=== PATIENT | female | born 1945 | race Caucasian/White ===

== ENCOUNTER → 2017-05-16 | Outpatient (CLI) | payer MEDICARE ==
[2014-04-04 12:19] VITALS: BP 103/49
[~2017-05-16] MED LIST: APRESOLINE 25MG25 MG PO; ASPIRIN 32325 MG/TAB PO; CLARITIN10 MG PO; COZAAR100 MG PO; FLONASE0.05 MG/AC IH; HYDROCHLOROTHIA25 MG PO; IMDUR ER30 MG PO; LIPITOR 40MG TA40 MG PO; MULTIPLE VITAMI1 CAP PO; NITROQUICK0.4 MG SL; NORVASC 5MG5 MG/TAB PO; PLAVIX 75MG TAB75 MG PO; PREMARIN .3MG0.3 MG PO; PRILOSEC 20MG20 MG PO; SINGULAIR10 MG PO; VENTOLIN0.09 MG IH; VITAMIN D50000 I2 PO; [UNRECOGNIZED DRUG - CODE] PO; [UNRECOGNIZED DRUG - OTHER] PO
== END ==
LOC: RAD 13:17
DX: J90 Pleural effusion, not elsewhere classified (principal); J98.11 Atelectasis

== ENCOUNTER → 2017-06-13 | Outpatient (CLI) | payer MEDICARE ==
[2014-04-04 12:19] VITALS: BP 103/49
== END ==
LOC: RAD 10:38
DX: R05 Cough (principal)

== ENCOUNTER → 2017-07-18 | Outpatient (CLI) | payer MEDICARE ==
[2014-04-04 12:19] VITALS: BP 103/49
== END ==
LOC: RAD 11:32
DX: M79.661 Pain in right lower leg (principal)

== ENCOUNTER → 2017-09-02 | Outpatient (CLI) | payer MEDICARE ==
[2014-04-04 12:19] VITALS: BP 103/49
[2017-09-02 17:11] LABS: ALBUMIN 4.3 g/dL (3.5-5.0); CALCIUM 8.9 mg/dL (8.4-10.2); POTASSIUM 3.2 mmol/L (3.6-5.0); TOTAL BILIRUBIN 0.2 mg/dL (0.2-1.3); TOTAL PROTEIN 7.6 g/dL (6.3-8.2)
[2017-09-02 17:22] LABS: EOS # 0.1 (0.04-0.40); HEMATOCRIT 34.9 % (37.0-47.0); HEMOGLOBIN 10.4 g/dL (12.5-16.0); MEAN CELL VOLUME 83 fl (78-100); MEAN CORPUSCULAR HEMOGLOBIN 25 pg (27-31); MEAN CORPUSCULAR HGB CONC 30 g/dL (33-37); MEAN PLATELET VOLUME 9.3 fl (7.4-10.4); MONO # 0.6 (0.20-0.80); NEU # 2.2 (1.40-6.50); PLATELET COUNT 483 K/mm3 (130-400); RED BLOOD COUNT 4.21 M/mm3 (4.10-5.30); RED CELL DISTRIBUTION WIDTH 15.4 % (11.5-14.5)
[2017-09-02 18:28] LABS: ERYTHROCYTE SEDIMENTATION RATE 17 mm/hr (0-30)
== END ==
LOC: LAB 16:24
PROVIDERS: Internal Medicine
DX: I10 Essential (primary) hypertension (principal); M85.89 Other specified disorders of bone density and structure, multiple sites; E78.2 Mixed hyperlipidemia; Z12.11 Encounter for screening for malignant neoplasm of colon; R20.2 Paresthesia of skin

== ENCOUNTER → 2017-11-15 | Outpatient (CLI) | payer MEDICARE ==
[2014-04-04 12:19] VITALS: BP 103/49
[2017-11-15 12:16] LABS: ALBUMIN 3.9 g/dL (3.5-5.0); BUN/CREATININE RATIO 22.4 (6.0-26.0); CALCIUM 8.9 mg/dL (8.4-10.2); POTASSIUM 3.6 mmol/L (3.6-5.0); TOTAL BILIRUBIN 0.3 mg/dL (0.2-1.3)
== END ==
LOC: LAB 11:36
PROVIDERS: Internal Medicine
DX: E78.5 Hyperlipidemia, unspecified (principal); I10 Essential (primary) hypertension

== ENCOUNTER → 2018-05-12 | Outpatient (CLI) | payer MEDICARE ==
[2014-04-04 12:19] VITALS: BP 103/49
[2018-05-12 12:25] LABS: ALBUMIN 3.9 g/dL (3.5-5.0); POTASSIUM 3.5 mmol/L (3.6-5.0); TOTAL BILIRUBIN 0.6 mg/dL (0.2-1.3); TOTAL PROTEIN 6.7 g/dL (6.3-8.2)
== END ==
LOC: LAB 10:54
PROVIDERS: Internal Medicine
DX: I10 Essential (primary) hypertension (principal); E78.5 Hyperlipidemia, unspecified; M85.80 Other specified disorders of bone density and structure, unspecified site

== ENCOUNTER → 2018-12-12 | Outpatient (CLI) | payer MEDICARE ==
[2014-04-04 12:19] VITALS: BP 103/49
[2018-12-12 16:43] LABS: EOS # 0.2 (0.04-0.40); EOS % 2.7 % (1.0-5.0); HEMATOCRIT 30.5 % (37.0-47.0); HEMOGLOBIN 8.8 g/dL (12.5-16.0); LYMPH# 2.8 (1.50-4.00); MEAN CELL VOLUME 78 fl (78-100); MONO # 0.8 (0.20-0.80); NEU # 3.4 (1.40-6.50); PLATELET COUNT 396 K/mm3 (130-400); RED BLOOD COUNT 3.91 M/mm3 (4.10-5.30); RED CELL DISTRIBUTION WIDTH 15.5 % (11.5-14.5); WHITE BLOOD COUNT 7.3 K/mm3 (4.8-10.8)
[2018-12-12 17:25] LABS: ALBUMIN 3.9 g/dL (3.4-4.8); CALCIUM 9.2 mg/dL (8.3-10.5); POTASSIUM 3.2 mmol/L (3.5-5.1); TOTAL BILIRUBIN 0.3 mg/dL (0.2-1.2); TOTAL PROTEIN 6.5 g/dL (6.2-8.1)
[2018-12-12 17:26] LABS: MEAN CORPUSCULAR HEMOGLOBIN 23 pg (27-31); MEAN CORPUSCULAR HGB CONC 29 g/dL (33-37)
== END ==
LOC: LAB 16:32
PROVIDERS: Internal Medicine
DX: I10 Essential (primary) hypertension (principal); M85.80 Other specified disorders of bone density and structure, unspecified site; E78.5 Hyperlipidemia, unspecified; R20.2 Paresthesia of skin

== ENCOUNTER → 2019-02-26 | Outpatient (CLI) | payer MEDICARE ==
[2014-04-04 12:19] VITALS: BP 103/49
[2019-02-26 10:46] LABS: EOS # 0.2 (0.04-0.40); EOS % 2.4 % (1.0-5.0); HEMATOCRIT 29.5 % (37.0-47.0); HEMOGLOBIN 8.4 g/dL (12.5-16.0); LYMPH# 2.7 (1.50-4.00); MEAN CELL VOLUME 77 fl (78-100); MEAN PLATELET VOLUME 9.8 fl (7.4-10.4); MONO # 0.7 (0.20-0.80); PLATELET COUNT 364 K/mm3 (130-400); RED BLOOD COUNT 3.84 M/mm3 (4.10-5.30); RED CELL DISTRIBUTION WIDTH 16.4 % (11.5-14.5); WHITE BLOOD COUNT 6.7 K/mm3 (4.8-10.8)
[2019-02-26 10:48] LABS: MEAN CORPUSCULAR HEMOGLOBIN 22 pg (27-31); MEAN CORPUSCULAR HGB CONC 29 g/dL (33-37)
== END ==
LOC: LAB 10:26
PROVIDERS: Internal Medicine Pulmonary Disease
DX: J45.40 Moderate persistent asthma, uncomplicated (principal)

== ENCOUNTER → 2019-04-13 | Outpatient (CLI) | payer MEDICARE ==
[2014-04-04 12:19] VITALS: BP 103/49
[2019-04-13 09:06] LABS: HEMATOCRIT 28.9 % (37.0-47.0); HEMOGLOBIN 8.1 g/dL (12.5-16.0); MEAN CELL VOLUME 75 fl (78-100); MEAN PLATELET VOLUME 10.6 fl (7.4-10.4); PLATELET COUNT 335 K/mm3 (130-400); RED BLOOD COUNT 3.87 M/mm3 (4.10-5.30); RED CELL DISTRIBUTION WIDTH 16.5 % (11.5-14.5); WHITE BLOOD COUNT 6.2 K/mm3 (4.8-10.8)
[2019-04-13 09:37] LABS: LYMPHOCYTE 40 % (20-51); MEAN CORPUSCULAR HEMOGLOBIN 21 pg (27-31); MEAN CORPUSCULAR HGB CONC 28 g/dL (33-37); MICROCYTOSIS 1+; MONOCYTE 8 % (3-10); NEUTROPHILS 49 % (42-75); OVALOCYTES 1+; TARGET CELLS 1+
== END ==
LOC: LAB 08:04
PROVIDERS: Internal Medicine
DX: D50.0 Iron deficiency anemia secondary to blood loss (chronic) (principal)

== ENCOUNTER → 2019-04-24 | Outpatient (CLI) | payer MEDICARE ==
[2014-04-04 12:19] VITALS: BP 103/49
[2019-04-24 13:22] LABS: EOS # 0.1 (0.04-0.40); HEMATOCRIT 30.1 % (37.0-47.0); HEMOGLOBIN 8.5 g/dL (12.5-16.0); LYMPH# 2.6 (1.50-4.00); MEAN CELL VOLUME 73 fl (78-100); MONO # 0.6 (0.20-0.80); NEU # 3.9 (1.40-6.50); PLATELET COUNT 428 K/mm3 (130-400); RED BLOOD COUNT 4.12 M/mm3 (4.10-5.30); RED CELL DISTRIBUTION WIDTH 16.1 % (11.5-14.5); WHITE BLOOD COUNT 7.2 K/mm3 (4.8-10.8)
[2019-04-24 15:10] LABS: MEAN CORPUSCULAR HEMOGLOBIN 21 pg (27-31); MEAN CORPUSCULAR HGB CONC 28 g/dL (33-37)
== END ==
LOC: LAB 13:03
PROVIDERS: Physician Assistant
DX: D64.9 Anemia, unspecified (principal)

== ENCOUNTER 2019-05-23 11:50 | Outpatient (RCR) | payer MEDICARE ==
[2019-05-14 11:31] VITALS: BP 119/68
[2019-05-15 11:45] VITALS: BP 121/64
[2019-05-15 12:41] VITALS: BP 129/59
[2019-05-16 11:00] VITALS: BP 136/61
[2019-05-16 12:15] VITALS: BP 114/59
[2019-05-22 12:25] VITALS: BP 131/67
[~2019-05-23] VITALS: Ht 157.5 cm; Wt 84.5 kg
[2019-05-23 12:02] VITALS: BP 147/75
[2019-05-23 13:05] VITALS: BP 137/77
== END 2019-05-23 13:18 | disposition home or self-care (01) ==
LOC: AMSURD 11:50
DX: N18.3 Chronic kidney disease, stage 3 (moderate) (principal); D50.9 Iron deficiency anemia, unspecified; D63.1 Anemia in chronic kidney disease
CPT/HCPCS: J2916

== ENCOUNTER → 2019-05-31 | Outpatient (CLI) | payer MEDICARE ==
[2019-05-23 13:05] VITALS: BP 137/77
[2019-05-31 13:49] LABS: HEMATOCRIT 34.4 % (37.0-47.0); MEAN CELL VOLUME 82 fl (78-100); MEAN PLATELET VOLUME 8.6 fl (7.4-10.4); PLATELET COUNT 497 K/mm3 (130-400); RED BLOOD COUNT 4.22 M/mm3 (4.10-5.30); WHITE BLOOD COUNT 4.4 K/mm3 (4.8-10.8)
[2019-05-31 14:00] LABS: MEAN CORPUSCULAR HEMOGLOBIN 24 pg (27-31); MEAN CORPUSCULAR HGB CONC 29 g/dL (33-37); RED CELL DISTRIBUTION WIDTH 26.3 % (11.5-14.5)
[2019-05-31 14:02] LABS: PROTHROMBIN TIME 10.5 SECONDS (9.0-12.0)
[2019-05-31 14:25] LABS: HYPOCHROMIA 1+; LYMPHOCYTE 53 % (20-51); MONOCYTE 3 % (3-10); NEUTROPHILS 44 % (42-75); POLYCHROMASIA 1+
== END ==
LOC: RAD 13:17
PROVIDERS: Physician Assistant
DX: I82.622 Acute embolism and thrombosis of deep veins of left upper extremity (principal); D50.9 Iron deficiency anemia, unspecified

== ENCOUNTER → 2019-06-14 | Outpatient (CLI) | payer MEDICARE ==
[2019-05-23 13:05] VITALS: BP 137/77
== END ==
LOC: LAB 11:59
DX: M85.89 Other specified disorders of bone density and structure, multiple sites (principal); R20.2 Paresthesia of skin

== ENCOUNTER → 2019-10-23 | Outpatient (CLI) | payer MEDICARE ==
[2019-10-23 08:56] LABS: EOS # 0.1 (0.04-0.40); EOS % 1.8 % (1.0-5.0); HEMATOCRIT 40.1 % (37.0-47.0); HEMOGLOBIN 13.3 g/dL (12.5-16.0); MEAN CELL VOLUME 94 fl (78-100); MEAN CORPUSCULAR HEMOGLOBIN 31 pg (27-31); MEAN CORPUSCULAR HGB CONC 33 g/dL (33-37); MEAN PLATELET VOLUME 10.1 fl (7.4-10.4); MONO # 0.8 (0.20-0.80); NEU # 2.6 (1.40-6.50); PLATELET COUNT 308 K/mm3 (130-400); RED BLOOD COUNT 4.26 M/mm3 (4.10-5.30); RED CELL DISTRIBUTION WIDTH 13.9 % (11.5-14.5); WHITE BLOOD COUNT 6.5 K/mm3 (4.8-10.8)
[2019-10-23 09:03] LABS: ALBUMIN 4.1 g/dL (3.4-4.8); POTASSIUM 3.1 mmol/L (3.5-5.1)
[2019-10-23 09:04] LABS: CALCIUM 9.2 mg/dL (8.3-10.5)
[2019-10-23 09:06] LABS: TOTAL PROTEIN 6.9 g/dL (6.2-8.1)
[2019-10-23 09:08] LABS: TOTAL BILIRUBIN 0.5 mg/dL (0.2-1.2)
== END ==
LOC: LAB 08:27
PROVIDERS: Internal Medicine
DX: I10 Essential (primary) hypertension (principal); E78.5 Hyperlipidemia, unspecified; D50.9 Iron deficiency anemia, unspecified; R73.02 Impaired glucose tolerance (oral)

== ENCOUNTER → 2019-12-27 | Outpatient (CLI) | payer MEDICARE ==
[2019-12-27 12:37] LABS: EOS # 0.1 (0.04-0.40); EOS % 1.2 % (1.0-5.0); HEMATOCRIT 40.2 % (37.0-47.0); HEMOGLOBIN 13.5 g/dL (12.5-16.0); LYMPH# 2.6 (1.50-4.00); MEAN CELL VOLUME 96 fl (78-100); MEAN CORPUSCULAR HEMOGLOBIN 32 pg (27-31); MEAN CORPUSCULAR HGB CONC 34 g/dL (33-37); MEAN PLATELET VOLUME 10.2 fl (7.4-10.4); MONO # 0.7 (0.20-0.80); NEU # 3.3 (1.40-6.50); PLATELET COUNT 305 K/mm3 (130-400); RED BLOOD COUNT 4.21 M/mm3 (4.10-5.30); RED CELL DISTRIBUTION WIDTH 12.9 % (11.5-14.5); WHITE BLOOD COUNT 6.8 K/mm3 (4.8-10.8)
[2019-12-27 12:38] LABS: ALBUMIN 4.3 g/dL (3.4-4.8); POTASSIUM 4.3 mmol/L (3.5-5.1)
[2019-12-27 12:39] LABS: CALCIUM 9.2 mg/dL (8.3-10.5)
[2019-12-27 12:41] LABS: TOTAL PROTEIN 6.9 g/dL (6.2-8.1)
[2019-12-27 12:42] LABS: TOTAL BILIRUBIN 0.4 mg/dL (0.2-1.2)
[2019-12-27 12:47] LABS: MAGNESIUM 1.79 mg/dL (1.60-2.60)
[2019-12-27 12:49] LABS: PROTHROMBIN TIME 9.6 SECONDS (9.0-12.0)
[2019-12-27 13:18] LABS: URINE APPEARANCE CLEAR; URINE BILIRUBIN NEGATIVE (NEGATIVE); URINE BLOOD NEGATIVE (NEGATIVE); URINE COLOR YELLOW; URINE GLUCOSE NEGATIVE (NEGATIVE); URINE KETONE NEGATIVE (NEGATIVE); URINE LEUKOCYTE ESTERASE NEGATIVE (NEGATIVE); URINE NITRATE NEGATIVE (NEGATIVE); URINE PROTEIN(semi-quant) NEGATIVE (NEGATIVE); URINE UROBILINOGEN NORMAL (NORMAL)
== END ==
LOC: AMSURD 11:40
PROVIDERS: Internal Medicine
DX: Z01.818 Encounter for other preprocedural examination (principal); M51.36 Other intervertebral disc degeneration, lumbar region; M47.816 Spondylosis without myelopathy or radiculopathy, lumbar region; H25.013 Cortical age-related cataract, bilateral

== ENCOUNTER → 2020-02-12 | Outpatient (CLI) | payer MEDICARE | LOC: RAD 08:55 | DX: M48.061 Spinal stenosis, lumbar region without neurogenic claudication (principal); M51.16 Intervertebral disc disorders with radiculopathy, lumbar region; M47.26 Other spondylosis with radiculopathy, lumbar region ==

== ENCOUNTER 2021-02-26 09:25 | Emergency (ER) | payer MEDICARE ==
[~2021-02-26] VITALS: Ht 154.9 cm; Wt 81.8 kg
[2021-02-26 10:08] LABS: URINE APPEARANCE CLOUDY; URINE BILIRUBIN NEGATIVE (NEGATIVE); URINE BLOOD NEGATIVE (NEGATIVE); URINE COLOR YELLOW; URINE GLUCOSE NEGATIVE (NEGATIVE); URINE KETONE NEGATIVE (NEGATIVE); URINE LEUKOCYTE ESTERASE 2+ (NEGATIVE); URINE MUCUS PRESENT (NOT PRESENT); URINE NITRATE NEGATIVE (NEGATIVE); URINE PROTEIN(semi-quant) 1+ mg/dL (NEGATIVE); URINE UROBILINOGEN NORMAL (NORMAL); URINE WBC >50 /hpf (0-3)
[2021-02-26 10:32] LABS: BASO # 0.03 (0.02-0.10); EOS # 0.05 (0.04-0.40); EOS % 0.6 % (1.0-5.0); HEMATOCRIT 35.6 % (37.0-47.0); HEMOGLOBIN 11.9 g/dL (12.5-16.0); LYMPH# 2.41 (1.50-4.00); MEAN CELL VOLUME 96 fl (78-100); MEAN CORPUSCULAR HEMOGLOBIN 32 pg (27-31); MEAN CORPUSCULAR HGB CONC 33 g/dL (33-37); MEAN PLATELET VOLUME 9.9 fl (7.4-10.4); MONO # 1.33 (0.20-0.80); NEU # 4.48 (1.40-6.50); PLATELET COUNT 257 K/mm3 (130-400); RED BLOOD COUNT 3.72 M/mm3 (4.10-5.30); RED CELL DISTRIBUTION WIDTH 12.9 % (11.5-14.5); WHITE BLOOD COUNT 8.4 K/mm3 (4.8-10.8)
[2021-02-26 10:46] LABS: ALBUMIN 3.9 g/dL (3.4-4.8); POTASSIUM 3.5 mmol/L (3.5-5.1)
[2021-02-26 10:48] LABS: CALCIUM 9.3 mg/dL (8.3-10.5); SODIUM 141 mmol/L (136-145)
[2021-02-26 10:49] LABS: D-DIMER 0.43 mg/L FEU (0.15-0.50); GLUCOSE 176 mg/dL (65-105); TOTAL PROTEIN 6.9 g/dL (6.2-8.1)
[2021-02-26 10:50] LABS: CARBON DIOXIDE 25 mmol/L (23-31)
[2021-02-26 10:51] LABS: TOTAL BILIRUBIN 0.7 mg/dL (0.2-1.2)
[2021-02-26] MEDS ORDERED: RT ALBUTEROL CC18 GM IH ×2 (10:51→10:52)
[2021-02-26 10:54] LABS: AST-SGOT 24 U/L (5-34)
[2021-02-26] MEDS ORDERED: CELEBREX 200MG200 MG PO (10:54)
[2021-02-26] MEDS ORDERED: LIPITOR 80MG80 MG PO (10:54)
[2021-02-26] MEDS ORDERED: CALCIUM + D3 E1 EACH PO (10:54)
[2021-02-26 10:55] LABS: ALT/SGPT 29 U/L (0-55)
[2021-02-26] MEDS ORDERED: CYCLOBENZAPRINE10 M1 PO (10:56)
[2021-02-26] MEDS ORDERED: DUREZOL5 ML OP (10:57)
[2021-02-26] MEDS ORDERED: VITAMIN D21250 MCG PO (10:59)
[2021-02-26] MEDS ORDERED: DIFLUCAN200 M1 PO (10:59)
[2021-02-26] MEDS ORDERED: FLUTICASONE P15.8 ML NS (11:00)
[2021-02-26] MEDS ORDERED: HYDRALAZINE100 MG PO (11:02)
[2021-02-26] MEDS ORDERED: HCTZ 25MG25 MG PO (11:02)
[2021-02-26] MEDS ORDERED: IPRATROPIUM BROM3 M1 IH (11:02)
[2021-02-26] MEDS ORDERED: EFFER-K20 MEQ PO (11:03)
[2021-02-26 11:05] LABS: TROPONIN-I < 0.03 ng/mL (<0.030)
[2021-02-26] MEDS ORDERED: CLARITIN 1010 MG/TAB PO (11:05)
[2021-02-26] MEDS ORDERED: COZAAR100 MG PO (11:05)
[2021-02-26] MEDS ORDERED: METOPROLOL SUCC25 M1 PO (11:06)
[2021-02-26] MEDS ORDERED: SINGULAIR PO (11:06)
[2021-02-26] MEDS ORDERED: ONE DAILY WOME1 EACH PO (11:07)
[2021-02-26] MEDS ORDERED: NITROSTAT0.4 M1 SL (11:07)
[2021-02-26] MEDS ORDERED: TOPROL XL 50MG50 MG PO (11:07)
[2021-02-26] MEDS ORDERED: NYSTATIN OINTME15 GM TOP (11:09)
[2021-02-26] MEDS ORDERED: NYSTOP POWDER15 GM TP (11:09)
[2021-02-26] MEDS ORDERED: PRILOSEC OTC20 MG PO (11:10)
[2021-02-26] MEDS ORDERED: TORSEMIDE10 M1 PO (11:10)
[2021-02-26] MEDS ORDERED: ALDACTONE25 M1 PO (11:10)
[2021-02-26] MEDS ORDERED: TRIAMCINOLONE A15 G2 TP (11:11)
[2021-02-26] MEDS ORDERED: DOXYCYCLINE HY100 M5 PO (13:05)
[2021-02-26] MEDS ORDERED: DECADRON6 M1 PO (13:05)
[2021-02-26 13:20] VITALS: BP 99/59
== END 2021-02-26 13:20 | disposition home or self-care (01) ==
LOC: ED 09:25
PROVIDERS: Nurse Practitioner
DX: U07.1 COVID-19 (principal); N39.0 Urinary tract infection, site not specified; J45.909 Unspecified asthma, uncomplicated; I25.10 Atherosclerotic heart disease of native coronary artery without angina pectoris; E78.2 Mixed hyperlipidemia; I12.9 Hypertensive chronic kidney disease with stage 1 through stage 4 chronic kidney disease, or unspecified chronic kidney disease; N18.30 Chronic kidney disease, stage 3 unspecified; E66.9 Obesity, unspecified; Z88.0 Allergy status to penicillin; Z79.82 Long term (current) use of aspirin; Z79.899 Other long term (current) drug therapy; Z79.02 Long term (current) use of antithrombotics/antiplatelets; Z68.34 Body mass index [BMI] 34.0-34.9, adult
CPT/HCPCS: J0696; J1100; J7030

== ENCOUNTER → 2021-11-03 | Outpatient (CLI) | payer MEDICARE ==
[~2021-11-03] MED LIST changes: +ALDACTONE25 M1 PO; +CALCIUM + D3 E1 EACH PO; +CELEBREX 200MG200 MG PO; +CLARITIN 1010 MG/TAB PO; +CYCLOBENZAPRINE10 M1 PO; +DECADRON6 M1 PO; +DIFLUCAN200 M1 PO; +DOXYCYCLINE HY100 M5 PO; +DUREZOL5 ML OP; +EFFER-K20 MEQ PO; +FLUTICASONE P15.8 ML NS; +HCTZ 25MG25 MG PO; +HYDRALAZINE100 MG PO; +IPRATROPIUM BROM3 M1 IH; +LIPITOR 80MG80 MG PO; +METOPROLOL SUCC25 M1 PO; +NITROSTAT0.4 M1 SL; +NYSTATIN OINTME15 GM TOP; +NYSTOP POWDER15 GM TP; +ONE DAILY WOME1 EACH PO; +PRILOSEC OTC20 MG PO; +RT ALBUTEROL CC18 GM IH; +SINGULAIR PO; +TOPROL XL 50MG50 MG PO; +TORSEMIDE10 M1 PO; +TRIAMCINOLONE A15 G2 TP; +VITAMIN D21250 MCG PO
[2021-11-03 16:50] LABS: URINE APPEARANCE CLEAR; URINE BILIRUBIN NEGATIVE (NEGATIVE); URINE BLOOD NEGATIVE (NEGATIVE); URINE COLOR YELLOW; URINE KETONE NEGATIVE (NEGATIVE); URINE LEUKOCYTE ESTERASE 1+ (NEGATIVE); URINE MUCUS PRESENT (NOT PRESENT); URINE NITRATE POSITIVE (NEGATIVE); URINE PROTEIN(semi-quant) TRACE (NEGATIVE); URINE UROBILINOGEN NORMAL (NORMAL); URINE WBC 31-50 /hpf (0-3)
== END ==
LOC: LAB 15:43
PROVIDERS: Nurse Practitioner Family
DX: B37.3 Candidiasis of vulva and vagina (principal); B37.2 Candidiasis of skin and nail; N39.0 Urinary tract infection, site not specified

== ENCOUNTER → 2021-11-09 | Outpatient (CLI) | payer MEDICARE ==
[2021-11-09 12:33] LABS: BASO # 0.04 K/mm3 (0.02-0.10); EOS # 0.12 K/mm3 (0.04-0.40); EOS % 1.9 % (1.0-5.0); HEMATOCRIT 37.1 % (37.0-47.0); HEMOGLOBIN 12.4 g/dL (12.5-16.0); LYMPH# 2.56 K/mm3 (1.50-4.00); MEAN CELL VOLUME 92 fl (78-100); MEAN CORPUSCULAR HEMOGLOBIN 31 pg (27-31); MEAN CORPUSCULAR HGB CONC 33 g/dL (33-37); MEAN PLATELET VOLUME 9.8 fl (7.4-10.4); MONO # 0.57 K/mm3 (0.20-0.80); NEU # 3.13 K/mm3 (1.40-6.50); PLATELET COUNT 315 K/mm3 (130-400); RED BLOOD COUNT 4.04 M/mm3 (4.10-5.30); RED CELL DISTRIBUTION WIDTH 12.9 % (11.5-14.5); WHITE BLOOD COUNT 6.5 K/mm3 (4.8-10.8)
[2021-11-09 12:40] LABS: ALBUMIN 4.3 g/dL (3.4-4.8); POTASSIUM 4.4 mmol/L (3.5-5.1)
[2021-11-09 12:41] LABS: CALCIUM 9.3 mg/dL (8.3-10.5)
[2021-11-09 12:43] LABS: TOTAL PROTEIN 7.1 g/dL (6.2-8.1)
[2021-11-09 12:45] LABS: TOTAL BILIRUBIN 0.4 mg/dL (0.2-1.2)
== END ==
LOC: LAB 12:17
PROVIDERS: Internal Medicine
DX: B37.2 Candidiasis of skin and nail (principal); I10 Essential (primary) hypertension; R73.03 Prediabetes

== ENCOUNTER 2022-02-15 20:01 | Emergency (ER) | payer MEDICARE ==
[~2022-02-15 20:01] MED LIST changes: -LEVOFLOXACIN750 MG PO; -METRONIDAZOLE500 M1 PO
[2022-02-15 20:37] LABS: URINE APPEARANCE CLEAR; URINE BILIRUBIN 2+ (NEGATIVE); URINE BLOOD NEGATIVE (NEGATIVE); URINE COLOR YELLOW; URINE GLUCOSE NEGATIVE (NEGATIVE); URINE KETONE NEGATIVE (NEGATIVE); URINE LEUKOCYTE ESTERASE TRACE (NEGATIVE); URINE MUCUS PRESENT (NOT PRESENT); URINE NITRATE NEGATIVE (NEGATIVE); URINE PROTEIN(semi-quant) TRACE (NEGATIVE); URINE UROBILINOGEN NORMAL (NORMAL)
[2022-02-15] MEDS ORDERED: LEVOFLOXACIN750 MG PO (21:20)
[2022-02-15] MEDS ORDERED: METRONIDAZOLE500 M1 PO (21:20)
[2022-02-15 21:32] VITALS: BP 112/70
== END 2022-02-15 21:33 | disposition home or self-care (01) ==
LOC: ED 20:01
PROVIDERS: Nurse Practitioner
DX: K57.32 Diverticulitis of large intestine without perforation or abscess without bleeding (principal); D64.9 Anemia, unspecified; E66.9 Obesity, unspecified; Z88.0 Allergy status to penicillin

== ENCOUNTER → 2022-02-15 | Outpatient (CLI) | payer MEDICARE ==
[~2022-02-15] MED LIST changes: +LEVOFLOXACIN750 MG PO; +METRONIDAZOLE500 M1 PO
[2022-02-15 18:52] LABS: HEMATOCRIT 36.7 % (37.0-47.0); HEMOGLOBIN 11.8 g/dL (12.5-16.0); MEAN PLATELET VOLUME 9.7 fl (7.4-10.4); RED BLOOD COUNT 3.99 M/mm3 (4.10-5.30); RED CELL DISTRIBUTION WIDTH 12.4 % (11.5-14.5); WHITE BLOOD COUNT 10.9 K/mm3 (4.8-10.8)
[2022-02-15 19:02] LABS: ALBUMIN 4.2 g/dL (3.4-4.8); POTASSIUM 3.5 mmol/L (3.5-5.1)
[2022-02-15 19:03] LABS: CALCIUM 9.1 mg/dL (8.3-10.5)
[2022-02-15 19:04] LABS: TOTAL PROTEIN 7.2 g/dL (6.2-8.1)
[2022-02-15 19:06] LABS: TOTAL BILIRUBIN 0.5 mg/dL (0.2-1.2)
== END ==
LOC: RAD 18:05
PROVIDERS: Nurse Practitioner
DX: R10.32 Left lower quadrant pain (principal)

== ENCOUNTER → 2023-09-21 | Outpatient (CLI) | payer MEDICARE ==
[~2023-09-21] MED LIST changes: +LEVOFLOXACIN750 MG PO; +METRONIDAZOLE500 M1 PO
== END ==
LOC: RAD 10:36
DX: R10.11 Right upper quadrant pain (principal)

== ENCOUNTER → 2024-03-29 | Outpatient (CLI) | payer MEDICARE ==
[2024-03-29 15:51] LABS: BASO # 0.03 K/mm3 (0.02-0.10); EOS # 0.11 K/mm3 (0.04-0.40); EOS % 1.4 % (1.0-5.0); HEMATOCRIT 38.6 % (37.0-47.0); HEMOGLOBIN 13.3 g/dL (12.5-16.0); LYMPH# 2.99 K/mm3 (1.50-4.00); MEAN CELL VOLUME 96 fl (78-100); MEAN CORPUSCULAR HEMOGLOBIN 33 pg (27-31); MEAN CORPUSCULAR HGB CONC 35 g/dL (33-37); MEAN PLATELET VOLUME 9.9 fl (7.4-10.4); MONO # 0.69 K/mm3 (0.20-0.80); NEU # 3.94 K/mm3 (1.40-6.50); PLATELET COUNT 298 K/mm3 (130-400); RED BLOOD COUNT 4.04 M/mm3 (4.10-5.30); RED CELL DISTRIBUTION WIDTH 12.1 % (11.5-14.5); WHITE BLOOD COUNT 7.8 K/mm3 (4.8-10.8)
[2024-03-29 15:57] LABS: ALBUMIN 4.3 g/dL (3.4-4.8)
[2024-03-29 15:58] LABS: CALCIUM 9.2 mg/dL (8.3-10.5)
[2024-03-29 15:59] LABS: TOTAL PROTEIN 6.9 g/dL (6.2-8.1)
[2024-03-29 16:01] LABS: TOTAL BILIRUBIN 0.5 mg/dL (0.2-1.2)
[2024-03-29 16:07] LABS: MAGNESIUM 1.71 mg/dL (1.60-2.60)
[2024-03-29 16:17] LABS: URINE APPEARANCE CLEAR (CLEAR); URINE COLOR YELLOW (YELLOW)
[2024-03-29 16:18] LABS: URINE BILIRUBIN NEGATIVE (NEGATIVE); URINE BLOOD NEGATIVE (NEGATIVE); URINE GLUCOSE NEGATIVE (NEGATIVE); URINE KETONE NEGATIVE (NEGATIVE); URINE LEUKOCYTE ESTERASE TRACE (NEGATIVE); URINE MUCUS PRESENT (NOT PRESENT); URINE NITRATE NEGATIVE (NEGATIVE); URINE PROTEIN(semi-quant) TRACE (NEGATIVE)
== END ==
LOC: LAB 15:33
PROVIDERS: Internal Medicine
DX: Z12.11 Encounter for screening for malignant neoplasm of colon (principal); I10 Essential (primary) hypertension; K90.9 Intestinal malabsorption, unspecified; E78.2 Mixed hyperlipidemia; E11.9 Type 2 diabetes mellitus without complications

== ENCOUNTER → 2024-04-04 | Outpatient (CLI) | payer MEDICARE | LOC: LAB 16:08 | DX: Z12.11 Encounter for screening for malignant neoplasm of colon (principal); I10 Essential (primary) hypertension; K90.9 Intestinal malabsorption, unspecified; E78.2 Mixed hyperlipidemia; E11.9 Type 2 diabetes mellitus without complications ==

== ENCOUNTER → 2024-05-08 | Outpatient (CLI) | payer MEDICARE ==
[2024-05-08 12:13] LABS: BASO # 0.02 K/mm3 (0.02-0.10); EOS # 0.11 K/mm3 (0.04-0.40); EOS % 1.6 % (1.0-5.0); HEMATOCRIT 38.7 % (37.0-47.0); LYMPH# 2.88 K/mm3 (1.50-4.00); MEAN CELL VOLUME 98 fl (78-100); MEAN CORPUSCULAR HEMOGLOBIN 33 pg (27-31); MEAN CORPUSCULAR HGB CONC 34 g/dL (33-37); MONO # 0.86 K/mm3 (0.20-0.80); NEU # 2.74 K/mm3 (1.40-6.50); PLATELET COUNT 368 K/mm3 (130-400); RED BLOOD COUNT 3.95 M/mm3 (4.10-5.30); RED CELL DISTRIBUTION WIDTH 12.7 % (11.5-14.5); WHITE BLOOD COUNT 6.9 K/mm3 (4.8-10.8)
[2024-05-08 12:19] LABS: ALBUMIN 4.2 g/dL (3.4-4.8)
[2024-05-08 12:20] LABS: CALCIUM 9.3 mg/dL (8.3-10.5)
[2024-05-08 12:21] LABS: TOTAL PROTEIN 7.3 g/dL (6.2-8.1)
[2024-05-08 12:23] LABS: TOTAL BILIRUBIN 0.5 mg/dL (0.2-1.2)
== END ==
LOC: RAD 11:48
PROVIDERS: Internal Medicine
DX: R91.8 Other nonspecific abnormal finding of lung field (principal)